=== PATIENT | male | born 1960 | race Two or more races ===

== ENCOUNTER 2017-04-30 09:07 | Emergency (ER) | payer OTHER ==
[~2017-04-30] VITALS: Ht 165.1 cm; Wt 102.1 kg
[~2017-04-30 09:07] MED LIST: ORPH100T PO
[2017-04-30] MEDS ORDERED: RANITIDINE15 MG/1 ML (09:25)
[2017-04-30] MEDS ORDERED: PROTONIX20 MG (09:25)
[2017-04-30] MEDS ORDERED: DILTIAZEM100 MG/100 (09:25)
[2017-04-30] MEDS ORDERED: TAMS0.4C (09:25)
== END 2017-04-30 16:37 | disposition home or self-care (01) ==
LOC: ER 09:07
DX: R10.13 Epigastric pain (principal); K27.9 Peptic ulcer, site unspecified, unspecified as acute or chronic, without hemorrhage or perforation; K82.4 Cholesterolosis of gallbladder

== ENCOUNTER 2020-03-24 09:06 | Emergency (ER) | payer OTHER ==
[~2020-03-24] VITALS: Ht 165.1 cm; Wt 111.1 kg
[~2020-03-24 09:06] MED LIST changes: +DILTIAZEM100 MG/100; +PROTONIX20 MG; +RANITIDINE15 MG/1 ML; +TAMS0.4C
[2020-03-24] MEDS ORDERED: CARDIZEM CD240 MG PO (09:42)
[2020-03-24] MEDS ORDERED: PROTONIX40 M1 (09:42)
== END 2020-03-24 14:45 | disposition home or self-care (01) ==
LOC: ER 09:06
DX: R10.31 Right lower quadrant pain (principal); M54.5 Low back pain